=== PATIENT | male | born 1945 | race Two or more races ===

== ENCOUNTER 2021-05-11 17:39 | Emergency (ER) | payer SELFPAY ==
[~2021-05-11] VITALS: Ht 180.3 cm; Wt 104.3 kg
[2021-05-11 18:43] VITALS: BP 128/54
== END 2021-05-11 22:59 | disposition left against medical advice (07) ==
LOC: EDBD 17:39 → ER 17:39
DX: M79.10 Myalgia, unspecified site (principal); R05.9 Cough, unspecified; R19.7 Diarrhea, unspecified; R11.0 Nausea; Z53.21 Procedure and treatment not carried out due to patient leaving prior to being seen by health care provider